=== PATIENT | male | born 1965 | race Hispanic/Latino ===

== ENCOUNTER 2021-05-13 08:53 | Emergency (ER) | payer SELFPAY ==
[2021-05-13] MEDS ORDERED: Aspirin Chewable 81 MG TAB ONE (09:24)
[2021-05-13] MEDS ORDERED: Nitroglycerin 2% Ointment 1 INCH/1 GM Packet ONE (09:24)
[2021-05-13 09:27] LABS: #Basophils 0.1 thou/uL (0.0-0.2); #Eosinphils 0.1 thou/uL (0.0-0.7); #Lymphocytes 2.3 thou/uL (1.20-3.40); #Monocytes 0.5 thou/uL (0.11-0.59); #Neutrophils 4.3 thou/uL (1.40-6.50); %Basophils 1.3 % (0.0-1.0); %Eosinophils 1.4 % (0.0-10.0); %Lymphocytes 31.5 % (21.0-51.0); %Monocytes 7.2 % (0.0-10.0); %Neutrophils 58.7 % (42.0-75.0); Hemoglobin 16.3 g/dL (14.0-18.0); Mean Corpuscular Hemoglobin 33.6 pg (27.0-31.0); Mean Corpuscular Volume 98.7 fL (78.0-98.0); Mean Platelet Volume 6.6 fL (7.4-10.4); Platelet Count 267 thou/uL (130-400); RBC Distribution Width 11.7 % (11.5-14.5); Red Blood Cell (RBC) Count 4.86 mill/uL (4.70-6.10); White Blood Cell (WBC) Count 7.3 thou/uL (4.8-10.8)
[2021-05-13] MEDS ORDERED: Ondansetron PF 4 MG/2 ML Vial ONE (09:37)
[2021-05-13 09:51] LABS: ALT (SGPT) 17 U/L (8-55); AST (SGOT) 22 U/L (5-34); Albumin 4.5 g/dL (3.5-5.0); Alkaline Phosphatase 93 U/L (40-110); Anion Gap 15 mmol/L (10-20); BUN (Urea Nitrogen) 14 mg/dL (8.4-25.7); Bilirubin, Total 0.8 mg/dL (0.2-1.2); CK (CPK) 177 U/L (30-200); Calc. Creatinine Clearance 0 mL/min (70-130); Calcium 9.7 mg/dL (7.8-10.44); Carbon Dioxide 23 mmol/L (22-29); Chloride 103 mmol/L (98-107); Globulin 3.5 g/dL (2.4-3.5); Glucose 120 mg/dL (70-105); Lipase 23 U/L (8-78); Sodium 138 mmol/L (136-145)
[2021-05-13 09:59] LABS: Potassium 2.9 mmol/L (3.5-5.1)
[2021-05-13 11:42] LABS: Troponin I Less than 0.010 ng/mL (< 0.028)
== END 2021-05-13 12:00 | disposition home or self-care (01) ==
LOC: ERS 08:53
DX: R07.9 Chest pain, unspecified (principal); T43.615A Adverse effect of caffeine, initial encounter; F17.210 Nicotine dependence, cigarettes, uncomplicated
CPT/HCPCS: 36415; 71045; 80053; 82550; 83690; 84484; 85025; 93005; 96374; J2405

== ENCOUNTER 2023-06-24 02:11 | Emergency (ER) | payer SELFPAY | END 2023-06-24 02:35 | disposition home or self-care (01) | LOC: ERS 02:11 | DX: B35.1 Tinea unguium (principal); B36.0 Pityriasis versicolor; F17.210 Nicotine dependence, cigarettes, uncomplicated | CPT/HCPCS: 99283 ==

== ENCOUNTER 2023-08-09 17:57 | Emergency (ER) | payer SELFPAY | END 2023-08-09 19:04 | disposition home or self-care (01) | LOC: ERS 17:57 | DX: S40.811A Abrasion of right upper arm, initial encounter (principal); S40.812A Abrasion of left upper arm, initial encounter; F17.210 Nicotine dependence, cigarettes, uncomplicated | CPT/HCPCS: 99283 ==

== ENCOUNTER → 2024-05-30 | Emergency (ER) | payer OTHER | LOC: ERS 20:05 | DX: H10.9 Unspecified conjunctivitis (principal); F17.210 Nicotine dependence, cigarettes, uncomplicated | CPT/HCPCS: 99282 ==

== ENCOUNTER 2024-08-09 20:26 | Emergency (ER) | payer OTHER, SELFPAY | END 2024-08-09 21:58 | disposition home or self-care (01) | LOC: ERS 20:26 | DX: K40.90 Unilateral inguinal hernia, without obstruction or gangrene, not specified as recurrent (principal); L02.828 Furuncle of other sites; F17.210 Nicotine dependence, cigarettes, uncomplicated | CPT/HCPCS: 99283 ==